=== PATIENT | female | born 1945 | race Caucasian/White ===

== ENCOUNTER 2017-09-09 17:23 | Emergency (ER) | payer OTHER, BC ==
[~2017-09-09] VITALS: Ht 154.9 cm; Wt 61.4 kg
[~2017-09-09 17:23] MED LIST: ACIDOPHILUS1 EAC4 PO; ATENOLOL 25MG; ATENOLOL25 MG PO; BUSPAR15 MG PO; BUSPAR30 MG; BUSPAR30 MG PO; COLACE50 MG PO; CORTEF10 MG PO; DURAGESIC50 MCG TD; EFFEXOR50 MG PO; ENDOCET 5-3251 EACH; FENTANYL1 EAC1 TD; GABAPENTIN800 MG; HYDROCODON-ACE1 EACH; HYDROCORTISONE10 MG; HYDROCORTISONE10 MG PO; HYDROCORTISONE25 MG; LEVOTHYROXINE50 MCG; LIBRAX, CLI1 CAPSULE; LIBRAX, CLI1 CAPSULE PO; MIRTAZAPINE30 MG; MIRTAZAPINE30 MG PO; MODAFINIL200 MG; NEURONTIN800 MG PO; NEXIUM40 MG; NEXIUM40 MG PO; OMEGA 3 1,0001 EACH BC; OMEGA-31000 M1 PO; PERCOCET 10/1 TABLET PO; PRAVASTATIN SOD40 MG PO; PROVIGIL200 MG PO; REQUIP0.25 MG PO; SANCTURA XR60 MG; SANCTURA XR60 MG PO; SUPER B COMP1 TABLET PO; SUPER B-50 COM1 EAC1 PO; SUPER B-COMPL400 MCG PO; SYNTHROID50 MCG PO; TYLENOL EXTRA500 MG PO; VENLAFAXINE HC100 MG; VENLAFAXINE HC100 MG PO; VITAMIN B-12500 MC5 SL; VITAMIN B12 100MCG PO; VITAMIN D2000 UNIT PO; [UNRECOGNIZED DRUG - CODE]
[2017-09-09 19:54] VITALS: BP 141/70
== END 2017-09-09 19:50 | disposition home or self-care (01) ==
LOC: EME 17:23
DX: S00.83XA Contusion of other part of head, initial encounter (principal); S80.01XA Contusion of right knee, initial encounter; W18.30XA Fall on same level, unspecified, initial encounter; Y92.511 Restaurant or cafe as the place of occurrence of the external cause; I12.9 Hypertensive chronic kidney disease with stage 1 through stage 4 chronic kidney disease, or unspecified chronic kidney disease; N18.3 Chronic kidney disease, stage 3 (moderate); K21.9 Gastro-esophageal reflux disease without esophagitis; E03.9 Hypothyroidism, unspecified; M19.90 Unspecified osteoarthritis, unspecified site; K58.9 Irritable bowel syndrome, unspecified; E27.40 Unspecified adrenocortical insufficiency; G47.10 Hypersomnia, unspecified; G47.30 Sleep apnea, unspecified; G62.9 Polyneuropathy, unspecified; F41.9 Anxiety disorder, unspecified; F32.9 Major depressive disorder, single episode, unspecified; Z79.891 Long term (current) use of opiate analgesic; Z87.448 Personal history of other diseases of urinary system; Z87.442 Personal history of urinary calculi; Z98.890 Other specified postprocedural states; Z96.651 Presence of right artificial knee joint; Z90.49 Acquired absence of other specified parts of digestive tract; Z91.013 Allergy to seafood; E73.9 Lactose intolerance, unspecified; Z88.6 Allergy status to analgesic agent; Z91.041 Radiographic dye allergy status; Z88.8 Allergy status to other drugs, medicaments and biological substances
CPT/HCPCS: 70450; 73564; 99281; 99284